=== PATIENT | male | born 1955 | race Caucasian/White ===

== ENCOUNTER → 2016-07-02 | Outpatient (CLI) | payer OTHER | LOC: FIMAGING 20:08 | PROVIDERS: ATTEND Neurological Surgery | DX: M41.85 Other forms of scoliosis, thoracolumbar region (principal); M50.322 Other cervical disc degeneration at C5-C6 level; M50.323 Other cervical disc degeneration at C6-C7 level; M50.30 Other cervical disc degeneration, unspecified cervical region ==